=== PATIENT | male | born 1990 | race Caucasian/White ===

== ENCOUNTER 2021-05-22 15:47 | Emergency (ER) | payer MEDICAID, SELFPAY ==
[2021-05-22 16:10] VITALS: BP 123/72; PULSE 95; RESP 16; TEMP 36.4; O2SAT 99; BMI 22.0
[2021-05-22 16:33] LABS: IDNOW Serial# 9DD0AD1C; Strep A Nucleic Acid Negative (Negative)
[2021-05-22 16:43] LABS: COVID-19 Test Negative (Negative)
--- NOTE | 2021-05-22 16:43 | ED_ITS ---
HPI - General Adult General Chief complaint: Dental/Oral Stated complaint: Dental pain Time Seen by Provider: 05/22/21 16:43 Source: patient Mode of arrival: ambulatory Limitations: no limitations History of Present Illness HPI narrative: 31-year-old male is here today for complaining of right jaw pain, sore throat, headache. Patient denies any fevers or chills. He reports that he woke up 2 days ago feeling like this. Reports postnasal drip. Denies any earache, no shortness of breath for respiratory distress. Onset (ago): day(s) Location: mouth Radiation: non-radiation Severity: mild Related Data Previous Rx's Medication Instructions Recorded amoxicillin 500 mg tablet 500 mg PO BID #14 tab 05/22/21 ibuprofen 600 mg tablet 600 mg PO Q8H PRN #20 tab 05/22/21 Allergies Allergy/AdvReac Type Severity Reaction Status Date / Time No Known Allergies Allergy Verified 05/22/21 16:13 Review of Systems Review of Systems: Constitutional : No Weight loss, No Fever, No Chills, No Night Sweats, No Fatigue, No Malaise ENT/Mouth : No Hearing loss, No Ear Pain, No Nasal Congestion, No Sinus Pain, No Hoarseness, sore throat, No Rhinorrhea, No Swallowing Difficulty Eyes: No Eye Pain, No Swelling, No Redness, No Foreign Body, No Discharge, No Vision Changes Cardiovascular : No Chest Pain, No SOB, No Dyspnea on Exertion, No Orthopnea, No Edema, No Palpitations Respiratory : No Cough, No Sputum, No Wheezing, No Smoke Exposure, No Dyspnea Gastrointestinal : No Nausea, No Vomiting, No Diarrhea, No Constipation, No abdominal Pain, No Hematochezia, No Melena Genitourinary : no irregular bleeding, No Dysuria, No Urinary Frequency, No Hematuria, No Urinary Incontinence, No Urgency, No Flank Pain, No Urinary Flow Changes, No Hesitancy Musculoskeletal : no joint pain, No Myalgias, No Joint Swelling Skin : No Skin Lesions, No rash Neuro : No Weakness, No Numbness, No Paresthesias, No Loss of Consciousness, No Dizziness, No Headache Yes all other systems are reviewed and are negative [facility] Past Medical History Medical History (Updated 05/22/21 @ 17:[address] [facility]) No known health problems Social History Social History Advance Directives: No Advance Directives Information Provided: Yes Physical Exam Vital Signs: Vital Signs: Last Vital Signs Temp 97.6 F 05/22/21 16:10 Pulse 95 05/22/21 16:10 Resp 16 05/22/21 16:10 BP 123/72 05/22/21 16:10 Pulse Ox 99 05/22/21 16:10 Body Mass Index 22.0 Const: General: healthy appearing, no acute distress and well developed Nutritional Appearance: well nourished Orientation/consciousness: patient oriented x3 HENMT: Head: Yes normal to inspection, Yes normocephalic and Yes atraumatic Ears: external ears normal and TM's normal bilaterally Throat: Yes uvula midline and Yes posterior oropharynx abnormal (Redness) Eyes: General: appearance normal, both eyes and all related structures Neck: Neck: Yes normal visual inspection, Yes full ROM and Yes trachea midline Thyroid: Thyroid normal Resp: Effort & Inspection: normal respiratory effort and able to speak in complete sentences Auscultation: clear to auscultation bilaterally Cardio: Rate: regular rate Rhythm: regular rhythm Heart sounds: S1 normal heart sound present and S2 normal heart sound present GI: Inspection: Yes normal to inspection and No distended Palpation (GI): No hepatosplenomegaly present Auscultation: normal bowel sounds Skin: General skin exam: elasticity normal, turgor normal and dry skin Neuro: General: patient oriented x3 Course Course Course Narrative: 31-year-old male is here today for complaining of sore throat, headache, postnasal drip, right TMJ. Took Tylenol at home. Upon exam he does have a right otitis media. Will do swab for COVID and strep. Reevaluation(s) Reevaluation #1: COVID and strep negative. Patient will be sent home with amoxicillin and ibuprofen. Medical Decision Making Lab Data Labs: Lab Results 05/22/21 05/22/21 Range/Units 16:16 16:16 COVID-19 ([facility]) Negative (Negative) COVID-19 Clin Com See Note S. pyogenes GrpA TYLER Negative (Negative) Discharge Plan Discharge Clinical Impression: Toothache Otitis media Qualifiers: Otitis media type: unspecified Chronicity: acute Qualified Code(s): H66.90 - Otitis media, unspecified, unspecified ear Patient Disposition: Home, Self-Care Instructions: Ear Infection (ED) Additional Instructions: You were seen here today for sore throat, headache. Your results are negative for COVID and strep. You have a right ear infection. You will be sent home with antibiotic and ibuprofen for pain. Please follow-up with your PCP. You may return to emergency department if her symptoms will get worse or fever experience any additional concerning symptoms Prescriptions: New amoxicillin 500 mg tablet 500 mg PO BID Qty: 14 RF: 0 ibuprofen 600 mg tablet 600 mg PO Q8H PRN (Reason: pain) Qty: 20 RF: 0 Stand Alone Forms: Work/School Release Interventions: ED Discharge Assessment Last Done: 05/22/21 17:42 Discharge Date/Time: 05/22/21 17:43
[2021-05-22] MEDS: Amoxicillin 500 MG CAPSULE PO (17:40)
== END 2021-05-22 17:43 | disposition home or self-care (01) ==
PROVIDERS: Emergency Provider Internal Medicine
DX: K08.89 Other specified disorders of teeth and supporting structures (principal); H66.90 Otitis media, unspecified, unspecified ear; Z20.822 Contact with and (suspected) exposure to COVID-19; Z79.899 Other long term (current) drug therapy
CPT/HCPCS: 36415; 87635; 87651; 99283

== ENCOUNTER 2021-05-30 10:59 | Emergency (ER) | payer MEDICAID, SELFPAY ==
[2021-05-30 11:50] VITALS: BP 114/70; PULSE 96; RESP 16; TEMP 37.9; O2SAT 99; BMI 22.0
--- NOTE | 2021-05-30 12:40 | ED_ITS ---
HPI - Ear Problem General Chief complaint: Ear Problems Stated complaint: rt ear pain Time Seen by Provider: 05/30/21 12:13 Source: patient Mode of arrival: ambulatory Limitations: no limitations History of Present Illness HPI Narrative: Patient seen here May 22 for right otitis media. Completed course of antibiotics yesterday. Reports persistent pain. No fevers, chills, itching, drainage. Related Data Previous Rx's Medication Instructions Recorded amoxicillin 500 mg tablet 500 mg PO BID #14 tab 05/22/21 ibuprofen 600 mg tablet 600 mg PO Q8H PRN #20 tab 05/22/21 ciprofloxacin 0.3 %-dexamethasone 4 drp OTIC (EARS) BID 7 Days #7.5 05/30/21 0.1 % ear drops,suspension ml (Ciprodex) Allergies Allergy/AdvReac Type Severity Reaction Status Date / Time No Known Allergies Allergy Verified 05/22/21 16:13 Review of Systems Review of Systems: Yes all other systems are reviewed and are negative Constitutional: Constitutional: Reports no additional constitutional comp laints, Denies body ache(s), Denies chills, Denies fever(s), Denies headache(s) and Denies weakness Eyes: Eyes: Reports no additional eye complaints and Denies change in vision ENT: Reports system reviewed and no additional complaints, except as documented, Denies dizziness, Denies ear discharge, Reports otalgia, Denies headache(s), Denies nasal congestion, Denies nasal discharge and Denies neck pain Cardiovascular: Cardiovascular: Reports no additional cardiovascular complaints, Denies chest pain, Denies leg edema and Denies dyspnea Respiratory: Respiratory: Reports no additional respiratory complaints, Denies cough and Denies dyspnea Gastrointestinal: Gastrointestinal: Reports no additional gastrointestinal complaints, Denies abdominal pain, Denies diarrhea, Denies nausea and Denies vomiting Genitourinary: Genitourinary: Denies urinary incontinence Musculoskeletal: Musculoskeletal: Reports no additional musculoskeletal complaints, Denies back pain, Denies arthralgias, Denies joint swelling, Denies neck pain, Denies numbness and Denies tingling Integumentary/Breasts: Skin/Breast: Reports system reviewed and no additional complaints, except as docu and Denies rash Neurologic: Reports system reviewed and no additional complaints, except as documented, Denies Abnormal speech present, Denies dizziness, Denies headache(s), Denies numbness, Denies tingling and Denies weakness PMFSH Past Medical History Attestation statement: The following information was validated with the patient. Source: old records reviewed and nursing notes reviewed Medical History No known health problems Social History Social History Advance Directives: No Physical Exam Vital Signs: Vital Signs: Last Vital Signs Temp 100.2 F 05/30/21 11:50 Pulse 96 05/30/21 11:50 Resp 16 05/30/21 11:50 BP 114/70 05/30/21 11:50 Pulse Ox 99 05/30/21 11:50 Body Mass Index 22.0 Const: General: cooperative, healthy appearing, comfortable and no acute distress Orientation/consciousness: patient oriented x3 Limitations: no limitations HENMT: Head: Yes normal to inspection Ears: hearing grossly normal bilaterally, TM's normal bilaterally, mastoids normal, no periauricular adenopathy and other (Right canal with erythema, swelling, tenderness) General nose exam: Normal external nose present Face and sinus: Yes normal facial exam Mouth: Normal oral and palatal mucosa present Throat: Yes posterior oropharynx normal Eyes: General: appearance normal, both eyes and all related structures Pupils: Equal, round and reactive pupils present Neck: Neck: Yes normal visual inspection, Yes full ROM, Yes no lymphadenopathy and Yes no meningeal signs Chest: Chest palpation & inspection: normal inspection of the chest Resp: Effort & Inspection: normal respiratory effort Auscultation: clear to auscultation bilaterally Cardio: Rate: regular rate Rhythm: regular rhythm Peripheral pulses: Peripheral pulses 2+ throughout GI: Inspection: Yes normal to inspection Palpation (GI): Soft to palpation and nontender Auscultation: normal bowel sounds Back/Spine/Pelvis: Thoracic/Lumbar Spine: thoracic and lumbar spine normal to inspection Skin: General skin exam: no rashes or lesions noted Neuro: General: patient oriented x3, no meningeal signs, no focal motor deficits and normal sensation to monofilament Cranial nerves: Yes Equal, round and reactive pupils present Cognition (Neuro): normal cognition Speech: No Abnormal speech present Gait exam (Neuro): Normal gait present Motor exam (neuro): 5/5 motor strength present throughout Extrem: General: Yes normal to inspection Course Course Course Narrative: 31-year-old male here with complaints of right ear pain for more than 1 week despite completing course of amoxicillin. On exam the patient has a normal TM. He does have some signs consistent with otitis externa. Will start on a topical Ciprodex. Reviewed worrisome signs and symptoms of when to return to the emergency department. Comfortable discharge home. MDM - Ear Differential Diagnosis Differential diagnosis: Likely otitis externa and otitis media Medical Records Attestation: I reviewed the patient's medical records. Lab Data Attestation: I reviewed the patient's lab results. Discharge Plan Discharge Clinical Impression: Otitis externa Patient Disposition: Home, Self-Care Instructions: Otitis Externa (ED) Prescriptions: New ciprofloxacin-dexamethasone [Ciprodex] 0.3-0.1 % drops,suspension 4 drp otic (ears) BID 7 Days Qty: 7.5 RF: 0 No Action amoxicillin 500 mg tablet 500 mg PO BID Qty: 14 RF: 0 ibuprofen 600 mg tablet 600 mg PO Q8H PRN (Reason: pain) Qty: 20 RF: 0 Referrals: Physician,Nonstaff [Primary Care Provider] - 2 days Interventions: ED Discharge Assessment Last Done: 05/30/21 12:20 Discharge Date/Time: 05/30/21 12:21
== END 2021-05-30 12:21 | disposition home or self-care (01) ==
PROVIDERS: Emergency Provider Emergency Medicine Emergency Medical Services
DX: H60.501 Unspecified acute noninfective otitis externa, right ear (principal); H92.01 Otalgia, right ear; Z79.899 Other long term (current) drug therapy
CPT/HCPCS: 99283